=== PATIENT | female | born 1975 | race Caucasian/White ===

== ENCOUNTER 2017-08-16 01:51 | Emergency (ER) | payer BC ==
[~2017-08-16] VITALS: Ht 165.1 cm; Wt 110.0 kg
[2017-08-16 02:25] LABS: PATH.CAST-FLAG NOT PRESENT; SPERM-FLAG NOT PRESENT; SRC-FLAG NOT PRESENT; XTAL-FLAG NOT PRESENT; YLC-FLAG NOT PRESENT
[2017-08-16] MEDS ORDERED: METF500T4 PO (02:28)
[2017-08-16] MEDS ORDERED: BENA1TAB10 PO (02:29)
[2017-08-16] MEDS ORDERED: PHENAZOPYRIDINE 200 MG TABLET PO ONE (02:30)
[2017-08-16] MEDS ORDERED: PHENAZOPYRIDINE 200 MG TABLET ONE (02:32)
[2017-08-16 02:55] LABS: HEMATOCRIT 41.5 % (34.6-47.8); HEMOGLOBIN 13.8 g/dL (11.7-16.4); WHITE BLOOD COUNT 11.2 x10^3/uL (3.4-10)
[2017-08-16 03:06] LABS: BLOOD UREA NITROGEN 20 mg/dL (7-18)
[2017-08-16 03:30] VITALS: BP 132/82
== END 2017-08-16 03:34 | disposition home or self-care (01) ==
LOC: ED 03:10
DX: N30.01 Acute cystitis with hematuria (principal); E11.9 Type 2 diabetes mellitus without complications; I10 Essential (primary) hypertension; E66.9 Obesity, unspecified
CPT/HCPCS: 36415; 80048; 81001; 82040; 84703; 85025; 87077; 87086; 87186; 99284